=== PATIENT | female | born 1955 | race Caucasian/White ===

== ENCOUNTER 2020-10-07 23:43 | Observation (INO) | payer MEDICARE, SELFPAY ==
--- NOTE | 2020-10-07 23:48 | DI.CT.S_ITS ---
PROCEDURE: CT ABDOMEN PELVIS W CON INDICATIONS: ab pain hx cancer TECHNIQUE: After the administration of IV contrast, axial sections were acquired from the lung bases to the pubic symphysis. Coronal and sagittal reformats were performed. For radiation dose reduction, the following was used: automated exposure control, adjustment of mA and/or kV according to patient size. COMPARISON: None. FINDINGS: Image quality: Excellent. Lung bases: Unremarkable. Heart: No significant findings. ABDOMEN: Liver: Unremarkable. Gallbladder: Unremarkable. Biliary ducts: Unremarkable. Pancreas: Unremarkable. Spleen: Unremarkable. Adrenal Glands: Unremarkable. Kidneys and Ureters: Unremarkable. Stomach and Bowel: Proximal small bowel shows fluid distension measuring up to 3.6 cm in diameter. Distal small bowel is decompressed, and there is a transition on images 2/48-55. No evidence of pneumatosis. Normal appearing appendix identified. Peritoneum: No free air. Small amount of free fluid present in the pelvis. Ventral Wall: No hernia. Abdominal Nodes: No retroperitoneal or mesenteric adenopathy by size criteria. Vessels: Aorta and inferior vena cava are normal in size. PELVIS: Pelvic Organs: Unremarkable. Bladder: Unremarkable. Pelvic Nodes: No enlarged lymph nodes. Miscellaneous: No inguinal hernias are seen. Bones: Unremarkable. IMPRESSION: 1. Mid small bowel obstruction. No evidence of pneumatosis or free air. Small amount of free fluid in the pelvis without abscess. Note: Final report is concordant with preliminary interpretation by [employer] Approved by: Nathan Miller M.D. on 10/08/2020 at 6:57
--- NOTE | 2020-10-07 23:50 | ED.ABDPAIN ---
HPI - Abdominal Pain General Chief Complaint: Abdominal Pain Stated Complaint: Abd Pain Time Seen by Provider: 10/07/20 23:48 History of Present Illness HPI narrative: Patient is a 65-year-old female with history of cervical cancer, bowel obstructions presenting with abdominal pain nausea vomiting and diarrhea. She says it started abruptly around 5:00 a.m.. She actually says this not quite diarrhea she does have looser stools which is not atypical for her. However she had severe abdominal pain with vomiting. She was given pain medication by EMS and pain is now well controlled. She denies any fever or chills. No chest pain or shortness of breath. She had hysterectomy for her cervical cancer along with radiation. Related Data Allergies Allergy/AdvReac Type Severity Reaction Status Date / Time codeine [CODEINE] Allergy Unknown SENSITIVITY Verified 10/08/20 01:03 Review of Systems Review of Systems Narrative: GENERAL: Denies chills, fatigue, malaise, fever, sweats, travel HEENT: Denies sinus pain, ear pain, sore throat, difficulty swallowing, neck pain RESPIRATORY: Denies dyspnea, cough, wheezing, hemoptysis, sputum. CARDIOVASCULAR: Denies chest pain, palpitations, orthopnea, edema GASTROINTESTINAL: See HPI : Denies dysuria, frequency, incontinence, hematuria, urinary retention, flank pain. MUSCULOSKELETAL: Denies weakness, joint pain, or bony pain SKIN: No rash, no erythema, no pruritus NEUROLOGIC: Denies weakness, dizziness, headache, numbness, change in speech, confusion PSYCHIATRIC: No concerning psychosocial issues. 12 point review of systems is negative except for those stated above and HPI Patient History Surgical History (Updated 06/24/17 @ 06:29 by Misty Kumar MD) Status post hysterectomy Status post tonsillectomy and adenoidectomy Family History (Updated 07/27/16 @ 00:00 by Conversion Provider) Father Age: 89 Heart disease Social History household members: spouse Smoking Status: Never smoker Exam Initial Vital Signs Initial Vital Signs: Vital Signs Temperature 98.8 F 10/07/20 23:51 Pulse Rate 70 10/07/20 23:51 Respiratory Rate 22 10/07/20 23:51 Blood Pressure 167/90 H 10/07/20 23:51 Pulse Oximetry 97 10/07/20 23:51 GENERAL: Alert thin 65-year-old female appears chronically ill HEENT: Head atraumatic,EOMI, pupils reactive, face symmetric, dry mucous membranes CARDIOVASCULAR: Regular rate and rhythm without murmurs, rubs or gallops. RESPIRATORY: Breath sounds equal bilaterally, no wheezes rales or rhonchi. ABDOMEN: Soft and flat, no distension no abdominal pain normal bowel sounds EXTREMITIES: Normal range of motion, no clubbing or edema. Neurovascularly intact NEUROLOGICAL: Alert and oriented x4. SKIN: Warm, dry, no laceration, no petechiae, no rashes or lesions. Course Orders Ordered: ED Orders 10/07/20 23:48 CT abdomen pelvis w con Stat 10/07/20 23:56 Complete Blood Count AUTO DIFF Stat Comprehensive Metabolic Panel Stat Lipase Stat 10/07/20 23:57 EKG-12 Lead Routine Sodium Chloride (Normal Saline 0.9%) 1,000 mls @ 125 mls/hr IV CONT LALITA Last Admin: 10/08/20 04:32 Dose: 125 mls/hr Documented by: LD Metoclopramide HCl (Metoclopramide 10 Mg/2 Ml Inj) 10 mg IV Q6HR PRN PRN Reason: Nausea And Vomiting Last Admin: 10/08/20 04:31 Dose: 10 mg Documented by: LD Morphine Sulfate (Morphine 2 Mg/Ml Inj) 2 mg IV Q4HR PRN PRN Reason: Pain, Mild (1-3) Last Admin: 10/08/20 04:54 Dose: 2 mg Documented by: LD Discontinued Medications Hydromorphone HCl (Hydromorphone 0.5 Mg Inj) 0.5 mg IV NOW ONE Stop: 10/07/20 23:49 Last Admin: 10/07/20 23:56 Dose: 0.5 mg Documented by: GAY Sodium Chloride (Normal Saline 0.9%) 1,000 mls @ 1,000 mls/hr IV CONT LALITA Last Infusion: 10/08/20 01:03 Dose: 0 mls/hr Documented by: Admin: 10/07/20 23:56 Dose: 1,000 mls/hr Documented by: GAY Metoclopramide HCl (Metoclopramide 10 Mg/2 Ml Inj) 10 mg IV NOW ONE Stop: 10/07/20 23:49 Last Admin: 10/07/20 23:56 Dose: 10 mg Documented by: GAY Pantoprazole Sodium (Pantoprazole 40 Mg Vial) 40 mg IV NOW ONE Stop: 10/07/20 23:49 Last Admin: 10/07/20 23:56 Dose: 40 mg Documented by: GAY Vital Signs Vital signs: Vital Signs - 8 hr 10/07/20 23:51 10/07/20 23:52 10/07/20 23:53 Temperature 98.8 F 98.6 F Pulse Rate 70 79 70 Respiratory Rate 22 22 18 Blood Pressure 167/90 H 167/90 H Pulse Oximetry 97 96 97 10/08/20 00:00 10/08/20 00:33 10/08/20 01:00 Temperature Pulse Rate 71 86 77 Respiratory Rate 17 11 L Blood Pressure 148/67 H Pulse Oximetry 96 93 94 10/08/20 01:06 10/08/20 01:30 10/08/20 02:00 Temperature Pulse Rate 77 71 67 Respiratory Rate 12 12 11 L Blood Pressure 145/72 H 139/69 Pulse Oximetry 95 96 95 10/08/20 02:30 Temperature Pulse Rate 68 Respiratory Rate 11 L Blood Pressure 139/69 Pulse Oximetry 95 MDM - Abdominal Pain Lab Data Result diagrams: 10/07/20 23:56 10/07/20 23:56 Labs: Lab Results 10/07/20 10/07/20 10/08/20 Range/Units 23:56 23:56 02:20 WBC 11.8 H (4.5-11.0) X10^3/uL RBC 4.38 (4.0-5.2) X10^6/uL Hgb 13.1 (12.0-16.0) g/dL Hct 39.4 (36-46) % MCV 90.0 (80-100) fL MCH 29.8 (26-34) PG MCHC 33.1 (30-36) % RDW 14.2 (11.6-14.8) % Plt Count 180 (150-400) X10^3/uL Neut % (Auto) 92.9 H (50-75) % Lymph % (Auto) 4.3 L (25-40) % [place] % (Auto) 2.6 L (3-14) % Eos % (Auto) 0.1 L (2-4) % Baso % (Auto) 0.1 (0-2) % Neut # (Auto) 07654 H (8207-0278) /uL Lymph # (Auto) 500 L (6876-0330) /uL [place] # (Auto) 300 (0-900) /uL Eos # (Auto) 0 (0-450) /uL Baso # (Auto) 0 (0-100) /uL Sodium 134 L (137-145) mmol/L Potassium 4.1 (3.4-5.1) mmol/L Chloride 102 (98-107) mmol/L Carbon Dioxide 25 (22-32) mmol/L BUN 12 (7-17) mg/dL Creatinine 0.66 (0.52-1.04) mg/dL Estimated GFR > 60.0 (>60) mL/min BUN/Creatinine Ratio 18.2 (6-22) Glucose 110 (80-110) mg/dL Calcium 9.5 (8.4-10.2) mg/dL Total Bilirubin 2.0 H (0.2-1.3) mg/dL AST 23 (14-36) IU/L ALT 14 (<35) IU/L Alkaline Phosphatase 83 (38-126) U/L Total Protein 6.7 (6.3-8.2) g/dL Albumin 4.0 (3.5-5.0) g/dL Globulin 2.7 (1.7-4.1) g/dL Albumin/Globulin Ratio 1.5 (1.0-2.8) Lipase 86 (23-300) U/L SARS-CoV-2 (PCR) Negative (Negative) Point of care testing: Urine Dip Bedside Urine Glucose Negative Bedside Urine Bilirubin - Negative Bedside Urine Ketone - Negative Urine Specific [place] 1.000 Bedside Urine Occult Blood - Negative Bedside Urine pH 7.5 Bedside Urine Protein - Negative Bedside Urine Urobilinogen - Negative Bedside Urine Nitrite - Negative Bedside Urine Leukocytes - Negative Esterase Imaging Data CT scan - abdomen/pelvis: Radiologist's Impression: Preliminary report: Moderately dilated and fluid-filled small bowel loops the gradual transition point in the midline lower abdomen on axial images 48-55. This is consistent with small bowel obstruction. Negative for pneumatosis or mesenteric abscess. ECG Data Interpretation: Normal sinus rhythm rate 79 [place] interval 144 QRS [address] changes or T-wave inversions MDM Narrative Medical decision making narrative: Patient initially was nauseated she requested not to have Zofran it does not really work for her so she is given Reglan which did seem to help. She is also given a dose dilaudid she remains abdominal pain free abdomen is reexamined and remains soft and non tender. Dr. Mendez surgery is not updated on patient's symptoms and test results along with CT results. It is possible small bowel obstruction has now resolved however at this time he agrees with observation. Discharge Plan Departure Patient Disposition: Admitted as Observation Clinical Impression: Small bowel obstruction Admit Date/Time: 10/08/20 02:49 Admit Provider: Victorino Mendez
[2020-10-07 23:51] VITALS: BP 167/90; PULSE 70; RESP 22; TEMP 37.1; O2SAT 97
[2020-10-07 23:52] VITALS: BP 167/90; PULSE 79; RESP 22; TEMP 37; O2SAT 96; BMI 18.6
[2020-10-07 23:53] VITALS: PULSE 70; RESP 18; O2SAT 97
[2020-10-07] MEDS: HYDROMORPHONE 0.5 MG INJ IV (23:56)
[2020-10-07] MEDS: METOCLOPRAMIDE 10 MG/2 ML INJ IV (23:56)
[2020-10-07] MEDS: PANTOPRAZOLE 40 MG VIAL IV (23:56)
[2020-10-07] MEDS: SODIUM CHLORIDE 0.9% 1,000 ML 1000 ML IV (23:56)
[2020-10-08] VITALS (12 sets, daily range): BP systolic 127–154; BP diastolic 58–92; PULSE 67–86; RESP 11–17; TEMP 37.1–37.6; O2SAT 93–99; BMI 18.6
[2020-10-08 00:08] LABS: Add Manual Diff / Slide Review NO; Basophils Absolute Auto 0 /uL (0-100); Basophils Percent Auto 0.1 % (0-2); Eosinophils Absolute Auto 0 /uL (0-450); Eosinophils Percent Auto 0.1 % (2-4); Hematocrit 39.4 % (36-46); Hemoglobin 13.1 g/dL (12.0-16.0); Lymphocytes Absolute Auto 500 /uL (1100-4500); Lymphocytes Percent Auto 4.3 % (25-40); Mean Corpuscular HGB Conc 33.1 % (30-36); Mean Corpuscular Hemoglobin 29.8 PG (26-34); Monocytes Absolute Auto 300 /uL (0-900); Monocytes Percent Auto 2.6 % (3-14); Neutrophils Absolute Auto 11000 /uL (1500-7000); Neutrophils Percent Auto 92.9 % (50-75); Platelet Count 180 X10^3/uL (150-400); Red Blood Cell Count 4.38 X10^6/uL (4.0-5.2); Red Cell Distribution Width 14.2 % (11.6-14.8); White Blood Cell Count 11.8 X10^3/uL (4.5-11.0)
[2020-10-08 00:14] LABS: Alanine Aminotransferase 14 IU/L (<35); Albumin Globulin Ratio 1.5 (1.0-2.8); Alkaline Phosphatase 83 U/L (38-126); Aspartate Aminotransferase 23 IU/L (14-36); BUN Creatinine Ratio 18.2 (6-22); Blood Urea Nitrogen 12 mg/dL (7-17); Calcium 9.5 mg/dL (8.4-10.2); Carbon Dioxide 25 mmol/L (22-32); Chloride 102 mmol/L (98-107); Estimated Glomerular Filt Rate > 60.0 mL/min (>60); Globulin 2.7 g/dL (1.7-4.1); Glucose 110 mg/dL (80-110); HEMOLYSIS < 15 (0-50); Lipase 86 U/L (23-300); Potassium 4.1 mmol/L (3.4-5.1); Sodium 134 mmol/L (137-145); Total Protein 6.7 g/dL (6.3-8.2)
[2020-10-08 03:58] LABS: COVID19 - ADMIT (NP swab/PCR) Negative (Negative)
[2020-10-08] MEDS: METOCLOPRAMIDE 10 MG/2 ML INJ IV (04:31)
[2020-10-08] MEDS: SODIUM CHLORIDE 0.9% 1,000 ML 125 ML IV (04:32)
[2020-10-08] MEDS: MORPHINE 2 MG/ML INJ IV (04:54)
--- NOTE | 2020-10-08 06:44 | PC.ADMIT ---
[id number] [facility] Admission Note: The patient,Miranda Persaud,65 y/o, was given written information regarding hospital policies, unit procedures and contact persons. Patient's smoking status: Never smoker. Vital Signs - 8 hr 10/07/20 23:51 10/07/20 23:52 10/07/20 23:53 Temperature 98.8 F 98.6 F Pulse Rate 70 79 70 Respiratory Rate 22 22 18 Blood Pressure 167/90 H 167/90 H Pulse Oximetry 97 96 97 10/08/20 00:00 10/08/20 00:33 10/08/20 01:00 Temperature Pulse Rate 71 86 77 Respiratory Rate 17 11 L Blood Pressure 148/67 H Pulse Oximetry 96 93 94 10/08/20 01:06 10/08/20 01:30 10/08/20 02:00 Temperature Pulse Rate 77 71 67 Respiratory Rate 12 12 11 L Blood Pressure 145/72 H 139/69 Pulse Oximetry 95 96 95 10/08/20 02:30 10/08/20 03:00 10/08/20 03:20 Temperature Pulse Rate 68 68 69 Respiratory Rate 11 L 11 L 12 Blood Pressure 139/69 149/63 H Pulse Oximetry 95 96 96 10/08/20 03:30 10/08/20 03:55 Temperature 99.6 F Pulse Rate 71 76 Respiratory Rate 12 16 Blood Pressure 154/70 H 143/92 H Pulse Oximetry 96 96
--- NOTE | 2020-10-08 09:09 | DI.RAD.S_ITS ---
PROCEDURE: XR ABDOMEN 1V INDICATIONS: f/u sbo TECHNIQUE: One view of the abdomen acquired. COMPARISON: None. FINDINGS: Surgical changes and devices: None. Bowel: Nonspecific bowel gas pattern. No gaseous distension. Soft tissues: No suspicious abdominal calcifications. Visualized solid organ contours appear normal in size. Linear metallic external artifact noted over the left upper quadrant. Bones: No suspicious bony lesions. IMPRESSION: Nonspecific bowel gas pattern without gaseous distension of small bowel loops. Approved by: Nathan Miller M.D. on 10/08/2020 at 8:50
--- NOTE | 2020-10-08 11:21 | P.HP_ITS ---
History of Present Illness History of Present Illness Date Patient Seen: 10/08/20 Time Patient Seen: 11:21 Chief complaint: Abd Pain Narrative: 65-year-old female admitted for small-bowel obstruction. Yesterday she developed severe abdominal pain and associated nausea with emesis. History of multiple prior small bowel obstructions never requiring surgical interv ention. She has a history of cervical cancer status post hysterectomy and radiation. At admission afebrile hemodynamically stable WBC 12. CT a/P dilated loops of small bowel no free air. Yesterday she did have a small bowel movement morning. This morning she is passing gas feels significantly better. Minimal abdominal pain. Patient History Surgical History Status post hysterectomy Status post tonsillectomy and adenoidectomy Family & Social History Family History Father Age: 89 Heart disease Social History: household members spouse Prior Living Arrangements House Safety & Behavioral: Feels Safe in Current Yes Environment Been Physically Hurt or No Threatened By a Person Suicidal Ideation Description None Suicide Plan Description No Plan Tobacco & Substance use: Smoking Status Never smoker Substance Use Type does not use Meds Home Medications and Allergies Allergies Allergy/AdvReac Type Severity Reaction Status Date / Time codeine [CODEINE] Allergy Unknown SENSITIVITY Verified 10/08/20 01:03 Exam Vital Signs (past 8 hours): - 10/08/20 03:30 10/08/20 03:55 10/08/20 09:33 Temperature 99.6 F 98.7 F Pulse Rate 71 76 69 Respiratory Rate 12 16 15 Blood Pressure 154/70 H 143/92 H 127/58 L Pulse Oximetry 96 96 97 Oxygen Delivery Method Room Air Oxygen Flow Rate 0 Narrative Exam Narrative: GENERAL-well developed adult female, no acute distress HEENT-no scleral icterus, hearing intact NECK-no JVD, trachea midline CVS- regular rate, no peripheral edema RESP-unlabored respiratory effort, no audible wheezing GI-soft, nontender nondistended MSK-no cyanosis or clubbing, extremities without deformity SKIN-warm, dry NEURO-alert and oriented, no focal deficits PYSCH-Appropriate mood and affect Objective Labs Result Diagrams: 10/07/20 23:56 10/07/20 23:56 Labs: Laboratory Results - last 24 hr 10/07/20 10/07/20 10/08/20 23:56 23:56 02:20 WBC 11.8 H RBC 4.38 Hgb 13.1 Hct 39.4 MCV 90.0 MCH 29.8 MCHC 33.1 RDW 14.2 Plt Count 180 Neut % (Auto) 92.9 H Lymph % (Auto) 4.3 L [place] % (Auto) 2.6 L Eos % (Auto) 0.1 L Baso % (Auto) 0.1 Neut # (Auto) 41112 H Lymph # (Auto) 500 L [place] # (Auto) 300 Eos # (Auto) 0 Baso # (Auto) 0 Sodium 134 L Potassium 4.1 Chloride 102 Carbon Dioxide 25 BUN 12 Creatinine 0.66 Estimated GFR > 60.0 BUN/Creatinine Ratio 18.2 Glucose 110 Calcium 9.5 Total Bilirubin 2.0 H AST 23 ALT 14 Alkaline Phosphatase 83 Total Protein 6.7 Albumin 4.0 Globulin 2.7 Albumin/Globulin Ratio 1.5 Lipase 86 SARS-CoV-2 (PCR) Negative Assessment & Plan Assessment & Plan narrative: 65-year-old female admitted for a small-bowel obstruction history of cervical cancer status post hysterectomy and radiation. I reviewed her CT abdomen/pelvis which demonstrates fluid filled loops of small bowel no free air. Over the past 12 hours she has improved significantly. Abdominal x-ray demonstrates no evidence of small-bowel obstruction she is with flatus has resolution of her abdominal pain and tolerating clear liquid diet. Will advance diet as tolerated and then she may discharge home.
--- NOTE | 2020-10-08 12:00 | CM.DANOTE ---
DCP: Case received, EMR reviewed and met with patient. , Joon, was also in the room. Introduced self and role. Was able to obtain information regarding patient's baseline activity status prior to hospitalization. DCP assessment completed with information currently available. Patient is a 65 year old female who admitted early this morning to the care of the hospitalist team. PCP: Dr. Teague at [facility]. Payer: confirmed: [employer] [facility]. Patient came to the hospital via air helicopter from [place] secondary to having abdominal pain. Patient was diagnosed with small bowel obstruction. She has history of small bowel obstructions, as well as cervical CA, and goes to [facility] for treatment. Met with patient in her room. She is alert and oriented, pleasant, was in the room. They have a home in [place], as well as [place], where they are currently residing. She is independent at her baseline. 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 P: Patient is to be discharged home today as soon as all test results are in. Daniela Dumont RN/[employer] Manager
--- NOTE | 2020-10-08 15:30 | PC.NURSE ---
Pt received lying in bed A&Ox3. VSS,afebril on RA. She denies N/V or abdominal pain. Abdominal xray completed. Pt tolerating clear liquids and advanced to general diet as tolerated. MD Mendez at bedside evaluating patient and cleared patient for discharge home this a.m. Pt verbalizes understanding of plan of care and dishcharge. No new medications ordered, and no follow up required per MD. Pt escorted by RN with to private vehicle with all of her belongings at approximately 1140 this a.m.
== END 2020-10-08 11:34 | disposition home or self-care (01) ==
LOC: ED 10-08 02:20 → AC 10-08 02:50
PROVIDERS: Admitting Provider Surgery; Emergency Provider Emergency Medicine; Referring Provider Emergency Medicine; Visit Provider Surgery
DX: K56.699 Other intestinal obstruction unspecified as to partial versus complete obstruction (principal); Z85.41 Personal history of malignant neoplasm of cervix uteri; Z20.822 Contact with and (suspected) exposure to COVID-19
CPT/HCPCS: 36415; 74018; 74177; 80053; 81003; 83690; 85025; 87635; 93005; 93010; 96361; 96374; 96375; 96376; 99220; 99284; C9803; G0378; C9113; J1170; J2270; J2765; Q9967